=== PATIENT | male | born 1975 | race Caucasian/White ===

== ENCOUNTER 2023-06-25 08:31 | Outpatient (CLI) | payer OTHER, SELFPAY ==
[2023-06-25 08:45] LABS: Hematocrit 40.9 % (40.0-54.0); Mean Corpuscular HGB Conc 31.8 g/dL (32-36); Mean Corpuscular Hemoglobin 30.4 pg (27.0-31.0); Mean Corpuscular Volume 95.6 fL (78.0-102.0); Mean Platelet Volume 11.3 fl (8.7-11.0); Platelet Count Result 235 K/mm3 (150-420); Red Blood Count 4.28 M/mm3 (4.70-6.10); Red Cell Distribution Width 12.5 % (11.6-14.4); White Blood Count 5.5 K/mm3 (4.8-10.8)
[2023-06-25 09:34] LABS: Alanine Aminotransferase 20 U/L (16-63); Albumin Level 3.8 g/dL (3.4-5.0); Alkaline Phosphatase 77 U/L (46-116); Anion Gap 6 mmol/L (4-12); Aspartate Amino Transferase 19 U/L (15-37); Bilirubin,Total 0.7 mg/dL (0.00-1.00); Blood Urea Nitrogen 19 mg/dL (7-18); Calcium 9.2 mg/dL (8.5-10.1); Carbon Dioxide 32 mmol/L (21-32); Chloride 104 mmol/L (98-108); Cholesterol 213 mg/dL (0-200); Estimated Glomerular Filt Rate > 60; Glucose 86 mg/dL (70-99); HDL Direct 77 mg/dL (40-60); LDL Cholesterol Calculated 126 mg/dL (<130); Osmolality Calculated 295 mOsm/kg (285-295); Potassium 4.4 mmol/L (3.5-5.1); Sodium 142 mmol/L (136-145); Thyroid Stimulating Hormone 1.14 uIU/mL (0.36-3.74); Total Protein 7.2 g/dL (6.4-8.2); Triglycerides 50 mg/dL (0-150)
== END 2023-06-25 08:32 | disposition home or self-care (01) ==
LOC: CHSLAB 08:33
PROVIDERS: PCP Family Medicine; Visit Provider Family Medicine
DX: Z00.00 Encounter for general adult medical examination without abnormal findings (principal); E66.3 Overweight; Z79.899 Other long term (current) drug therapy
CPT/HCPCS: 36415; 80053; 80061; 84443; 85027

== ENCOUNTER 2024-06-20 06:59 | Outpatient (CLI) | payer OTHER, SELFPAY ==
--- OUTSIDE RECORDS SUMMARY | 2024-06-20 07:01 | XMS_ITS | Clinical Summary ---
Author Organization [facility] Address [address] [place] [address] Care Team Providers Care Ore Bridge Operator Name Role Phone Unavailable Primary Care Provider Unavailabl e Social History Tobacco Use Types Packs/Day Years Used Date Smoking Tobacco: Never Assessed Comments Unknown Sex and Gender Information Value Date Recorded Sex Assigned at Not on file Legal Sex Female 9:19 PM CDT Gender Identity Not on file Sexual Orientation Not on file Last Filed Vital Signs Vital Sign Reading Time Taken Comments Blood Pressure 131/84 12/03/2014 4:31 PM CDT Pulse 73 12/03/2014 4:31 PM CDT Temperature - - Respiratory Rate - - Oxygen Saturation - - Inhaled Oxygen Concentration - - Weight 79.4 kg (175 lb) 12/03/2014 4:31 PM CDT Height 170.2 cm (5' 7 ) 12/03/2014 4:31 PM CDT Body Mass Index 27.41 12/03/2014 4:31 PM CDT Plan of Treatment Health Maintenance Due Date Last Done Comments Cervical Cancer Screening Pa p Smear (Age 30 to 64) Every 3 Years 1973 Colorectal Cancer Screening Colonoscopy (10 Years) 1973 Annual Physical 1976 Hepatitis C 1991 DTaP, Tdap and Td Vaccines ( 1 - Tdap) 1992 Hepatitis B Vaccines (1 of 3 - 19+ 3-dose series) 1992 Cervical Cancer Screening Pa p with HPV Testing (Age 30 to 64) Every 5 Years 2003 Cervical Cancer Screening with HPV 2003 Mammogram Screening 2013 Zoster Vaccines (1 of 2) 2023 COVID-19 Vaccine (2023-2 5 season) 2023 Influenza Adult (#1) 2023 Meningococcal B Vaccine Aged Out No l onger eligible based on patient's age to complete this topic Meningococcal Vaccine Aged Out No mariah dez eligible based on patient's age to complete this topic Pneumococcal Vaccine: Pediat rics (0 to 5 Years) and At-Risk Patients (6 to 64 Years) Aged Out No longer eligible b ased on patient's age to complete this topic RSV Immunizations Under 20 Months Aged Out No longer eligible based on patient's age to complete this topic
--- OUTSIDE RECORDS SUMMARY | 2024-06-20 07:02 | XMS_ITS | Continuity of Care Document ---
Author Organization [facility] Address [address] [place] [address] Phone Care Team Providers Care Beader Tender Name Role Phone Rica PT, DPT, Mello Unavailable Unavai lable Procedures Procedure Date Progress Note Therapeutic Activities Manual Therapy Hot or Cold Pack Therapeutic Exercise Neuromuscular Re-Ed Electrical Stimulation Therapeutic Activities Neuromuscular Re-Ed Hot or Cold Pack Therapeutic Exercise Electrical Stimulation Manual Therapy Therapeutic Activities Neuromuscular Re-Ed Therapeutic Exercise Manual Therapy Therapeutic Activities Neuromuscular Re-Ed Therapeutic Exercise Electrical Stimulation Hot or Cold Pack Therapeutic Exercise Hot or Cold Pack Neuromuscular Re-Ed Manual Therapy Therapeutic Activities Electrical Stimulation Neuromuscular Re-Ed Therapeutic Exercise Therapeutic Activities Manual Therapy Hot or Cold Pack Manual Therapy Therapeutic Activities Therapeutic Exercise Neuromuscular Re-Ed Manual Therapy Therapeutic Activities Therapeutic Exercise Neuromuscular Re-Ed Therapeutic Activities Therapeutic Exercise Manual Therapy Hot or Cold Pack Electrical Stimulation PT Evaluation Low Complexity Manual Therapy Therapeutic Exercise Therapeutic Activities Hot or Cold Pack Electrical Stimulation Progress Note THERAPEUTIC EXERCISES NEUROMUSCULAR RE-ED FUNC ACTIVITY THERAPEUTIC EXERCISES NEUROMUSCULAR RE-ED FUNC ACTIVITY THERAPEUTIC EXERCISES NEUROMUSCULAR RE-ED MANUAL THERAPY FUNC ACTIVITY THERAPEUTIC EXERCISES NEUROMUSCULAR RE-ED MANUAL THERAPY FUNC ACTIVITY Progress Note THERAPEUTIC EXERCISES NEUROMUSCULAR RE-ED MANUAL THERAPY FUNC ACTIVITY THERAPEUTIC EXERCISES NEUROMUSCULAR RE-ED MANUAL THERAPY FUNC ACTIVITY THERAPEUTIC EXERCISES NEUROMUSCULAR RE-ED MANUAL THERAPY FUNC ACTIVITY THERAPEUTIC EXERCISES NEUROMUSCULAR RE-ED MANUAL THERAPY FUNC ACTIVITY THERAPEUTIC EXERCISES NEUROMUSCULAR RE-ED MANUAL THERAPY FUNC ACTIVITY THERAPEUTIC EXERCISES NEUROMUSCULAR RE-ED MANUAL THERAPY FUNC ACTIVITY THERAPEUTIC EXERCISES NEUROMUSCULAR RE-ED MANUAL THERAPY FUNC ACTIVITY THERAPEUTIC EXERCISES NEUROMUSCULAR RE-ED MANUAL THERAPY FUNC ACTIVITY HOT/COLD PACK THERAPEUTIC EXERCISES NEUROMUSCULAR RE-ED MANUAL THERAPY FUNC ACTIVITY HOT/COLD PACK THERAPEUTIC EXERCISES NEUROMUSCULAR RE-ED MANUAL THERAPY FUNC ACTIVITY HOT/COLD PACK THERAPEUTIC EXERCISES NEUROMUSCULAR RE-ED MANUAL THERAPY FUNC ACTIVITY HOT/COLD PACK ELECTRIC STIMULATION UNATT THERAPEUTIC EXERCISES NEUROMUSCULAR RE-ED MANUAL THERAPY FUNC ACTIVITY HOT/COLD PACK ELECTRIC STIMULATION UNATT THERAPEUTIC EXERCISES NEUROMUSCULAR RE-ED MANUAL THERAPY FUNC ACTIVITY HOT/COLD PACK ELECTRIC STIMULATION UNATT THERAPEUTIC EXERCISES NEUROMUSCULAR RE-ED MANUAL THERAPY FUNC ACTIVITY HOT/COLD PACK ELECTRIC STIMULATION UNATT THERAPEUTIC EXERCISES NEUROMUSCULAR RE-ED MANUAL THERAPY FUNC ACTIVITY HOT/COLD PACK THERAPEUTIC EXERCISES NEUROMUSCULAR RE-ED MANUAL THERAPY FUNC ACTIVITY HOT/COLD PACK THERAPEUTIC EXERCISES NEUROMUSCULAR RE-ED MANUAL THERAPY FUNC ACTIVITY HOT/COLD PACK PT RE-EVALUATION THERAPEUTIC EXERCISES MANUAL THERAPY HOT/COLD PACK ELECTRIC STIMULATION UNATT THERAPEUTIC EXERCISES MANUAL THERAPY HOT/COLD PACK ELECTRIC STIMULATION UNA THERAPEUTIC EXERCISES MANUAL THERAPY HOT/COLD PACK ELECTRIC STIMULATION UNA THERAPEUTIC EXERCISES MANUAL THERAPY HOT/COLD PACK ELECTRIC STIMULATION UNA THERAPEUTIC EXERCISES MANUAL THERAPY HOT/COLD PACK ELECTRIC STIMULATION UNA THERAPEUTIC EXERCISES MANUAL THERAPY HOT/COLD PACK ELECTRIC STIMULATION UNA THERAPEUTIC EXERCISES MANUAL THERAPY HOT/COLD PACK ELECTRIC STIMULATION UNA THERAPEUTIC EXERCISES MANUAL THERAPY HOT/COLD PACK ELECTRIC STIMULATION UNA THERAPEUTIC EXERCISES MANUAL THERAPY HOT/COLD PACK ELECTRIC STIMULATION UNA PT RE-EVALUATION THERAPEUTIC EXERCISES MANUAL THERAPY HOT/COLD PACK ELECTRIC STIMULATION UNA THERAPEUTIC EXERCISES MANUAL THERAPY HOT/COLD PACK ELECTRIC STIMULATION UNA THERAPEUTIC EXERCISES MANUAL THERAPY HOT/COLD PACK ELECTRIC STIMULATION UNA THERAPEUTIC EXERCISES MANUAL THERAPY HOT/COLD PACK ELECTRIC STIMULATION UNA THERAPEUTIC EXERCISES MANUAL THERAPY HOT/COLD PACK ELECTRIC STIMULATION UNA THERAPEUTIC EXERCISES MANUAL THERAPY HOT/COLD PACK ELECTRIC STIMULATION UNA THERAPEUTIC EXERCISES MANUAL THERAPY HOT/COLD PACK ELECTRIC STIMULATION UNA Shoulder Amando PT EVALUATION THERAPEUTIC EXERCISES MANUAL THERAPY HOT/COLD PACK ELECTRIC STIMULATION UNATT Advance Directives Directive Yes / No Effective Date File Name No Information Encounters Encounter Description Practice Location Reason(s) For Visit Diagnoses Date Provider Providers Copied on Encounter [facility] [address] [facility], [place], [place], [id number], tel:[phone] [place] No Information 1 Rica Sarkar. . Referring Provider: [facility]. [facility] [address] [address], [place], [place], [id number], tel:[phone] [place] No Information 1 Rica Parsonsry. . Referring Provider: [facility] [address], [place], [place], [id number], tel:[phone] [place] No Information 1 Rica Parsonsry. . Referring Provider: [facility] [address], [place], [place], [address], tel:[phone] [place] No Information 1 Betsey Ramosi. . Referring Provider: [facility] [address], [place], [place], [address], tel:[phone] [place] No Information 1 Scheldt Angelia. . Referring Provider: [facility] [address], [place], [place], [address], tel:[phone] [place] No Information 1 Scheldt Angelia. . Referring Provider: [facility] [facility] [address], [place], [place], [address], tel:[phone] [place] No Information 1 Schniers Mello. . Referring Provider: [facility], [address], [place], [place], [address], [place] tel:[phone] [place] No Information 1 Schniers Mello. . Referring Provider: [facility], [address] [facility], [place], [place], [address], tel:[phone] [place] No Information 1 Schniers Mello. . Referring Provider: [facility], [address], [place], [place], [address], [place] tel:[phone] [place] No Information 1 Schniers Mello. . Referring Provider: [facility], [address] [address], [place], [place], [address], [place] tel:[phone] [place] No Information 6 Shaun Soco. [address] [place] [address], [address], [place], [facility], . tel: [phone] Referring Provider: [place], [address]. tel:[phone] [facility] [address] [address], [place], [place], [address], tel:[phone] [place] No Information 6 Shaun Soco. [address] [place] [address], [address], [place], [facility], . tel: [phone] Referring Provider: [place], [address]. tel:[phone] [facility], [place], [place], [address], [place] tel:[phone] [place] No Information 6 Shaun Soco. [address] [place] [address], [address], [place], [place], [facility], . tel: [phone] Referring Provider: [place], [address]. tel:[phone], [id number], tel:[phone] [place] No Information 3-201 6 Shaun Soco. [address] [place] [address], [address], [place], [place], [facility], . tel: [phone] Referring Provider: [place], [address]. tel:[phone], [id number], tel:[phone] [place] No Information 1 6 Shaun Soco. [address] [place] [address], [address], [place], [facility], . tel: [phone] Referring Provider: [place], [address]. tel:[phone], [id number], tel:[phone] [place] No Information 6-201 6 Shaun Soco. [address] [place] [address], [address], [place], [facility], . tel: [phone] Referring Provider: [place], [address]. tel:[phone], [id number], tel:[phone] [place] No Information 4-201 6 Shaun Soco. [address] [place] [address], [address], [place], [facility], . tel: [phone] Referring Provider: [place], [address]. tel: [facility] [address] [place], [place] [address], [place], [place], [address], tel:[phone] [place] No Information Dec-2 8-201 5 Shaun Soco. [address] [place] [address], [address], [place], [facility], . tel: [phone] Referring Provider: [place], [address]. tel: [address], [place], [place], [address], [place] tel:[phone] [place] No Information Dec-2 3-201 5 Shaun Soco. [address] [place] [address], [address], [place], [facility], . tel: [phone] Referring Provider: [place], [address]. tel: [address], [place], [place], [address], [place] tel:[phone] [place] No Information Dec-2 1-201 5 Shaun Soco. [address] [place] [address], [address], [place], [facility], . tel: [phone] Referring Provider: [place], [address]. tel: [address], [place], [address], [place] tel:[phone] [place] No Information Dec-1 6-201 5 Shaun Soco. [address] [place] [address], [address], [place], [facility], . tel: [phone] Referring Provider: [place], [address]. tel: [facility], [address] [place], [place] [address], [place], [address], tel:[phone] [place] No Information Dec-1 1-201 5 Shaun Soco. [address] [place] [address], [address], [facility], . tel: [phone] Referring Provider: [place], [address]. tel: [facility] [address] [facility] [address], [address], tel:[phone] [place] No Information Dec-0 9-201 5 Shaun Soco. [address] [place] [address], [address], [facility], . tel: [phone] Referring Provider: [place], [address]. tel: [facility] [address] [facility] [address] [place] [address], [id number], tel:[phone] [place] No Information Nov-3 0-201 5 Shaun Soco. [address] [place] [address], [address], [facility], . tel: [phone] Referring Provider: [place], [address]. tel: [facility] [address] [facility] [address], [address], tel:[phone] [place] No Information Nov-2 5-201 5 Shaun Soco. [address] [place] [address], [address], [place], [facility], . tel: [phone] Referring Provider: [place], [address]. tel: [facility] [address] [facility] [address], [address], tel:[phone] [place] No Information Nov-2 3-201 5 Shaun Soco. [address] [place] [address], [address], [place], [address], [place]. tel: [phone] Referring Provider: [place], [address]. tel:[phone], [place], [place], [id number], [place] tel:[phone] [place] No Information Nov- 8-201 5 Milleruet Gerard. [address] [place] [address], [address], [place], [address], [place]. tel: [phone] Referring Provider: [place], [address]. tel:[phone], [place], [address], [place] tel:[phone] [place] No Information Nov-1 6-201 5 Shaun Soco. [address] [place] [address], [address], [place], [address], [place]. tel: [phone] Referring Provider: [place], [address]. tel:[phone], [place], [place], [address], [place] tel:[phone] [place] No Information Jan-1 1-201 5 Shaun Soco. [address] [place] [address], [address], [place], [address], [place]. tel: [phone] Referring Provider: [place], [address]. tel:[phone] [facility], [address], [place], [place], [address], [place] tel:[phone] [place] No Information Nov-0 9-201 5 Shaun Soco. [address] [place] [address], [address], [place], [facility], . tel: [phone] Referring Provider: [place], [address]. tel: [address], [id number], tel:[phone] [place] No Information Nov-0 5-201 5 Kayla Parks. [address] [place] [address], [address], [place], [facility], . tel: [phone] Referring Provider: [place], [address]. tel:[phone], [id number], tel:[phone] [place] No Information Nov-0 2-201 5 Shaun Wan. [address] [place] [address], [address], [place], [facility], . tel: [phone] Referring Provider: [place], [address]. tel:[phone], [id number], tel:[phone] [place] No Information Oct-2 8-201 5 Shaun Wan. [address] [place] [address], [address], [place], [facility], . tel: [phone] Referring Provider: [place], [address]. tel: [address], [id number], tel:[phone] [place] No Information Oct-2 6-201 5 Kayla Parks. [address] [place] [address], [address], [place], [facility], . tel: [phone] Referring Provider: [place], [address]. tel: [facility] [address] [facility], [place], [place], [address], [place] tel:[phone] [place] No Information 3 5 Harsh Bennett. [address] [place] [address], [address], [place], [facility], . tel: [phone] Referring Provider: [place], [address]. tel: [facility] [address] [facility], [place], [place], [address], [place] tel:[phone] [place] No Information 5 Shaun Wan. [address] [place] [address], [facility] [address], [place], [facility], . tel: [phone] Referring Provider: [place], [address]. tel: [facility] [address] [place], [place] [address] [facility], [place], [address], [place] tel:[phone] [place] No Information 5 Kayla Parks. [address] [place] [address], [address], [place], [facility], . tel: [phone] Referring Provider: [place], [address]. tel: [facility] [address] [facility], [place], [place], [address], [place] tel:[phone] [place] No Information 5- 5 Kayla Parks. [address] [place] [address], [address], [place], [facility], . tel: [phone] Referring Provider: [place], [address]. tel: [facility], [address] [facility], [place], [place], [address], tel:[phone] [place] No Information 5 Shaun Wan. [address] [place] [address], [address], [place], [facility], . tel: [phone] Referring Provider: [place], [address]. tel:[phone] [facility], [address] [facility], [place], [place], [address], [place] tel:[phone] [place] Stiffness of right shoulder, not elsewhere classifiedMuscle wasting and atrophy, NEC, right shoulderPain in right shoulderAdhesive capsulitis of right shoulderUnsp rotatr-cuff tear/ruptr of right shoulder, not trauma 5 Shaun Wan. [address] [place] [address], [address], [place], [facility], . tel: [phone] Referring Provider: [place], [address]. tel:[phone] [facility] [address] [facility], [place], [place], [address], tel:[phone] [place] No Information Sep-0 9201 5 Shaun Wan. [address] [place] [address], [address], [place], [facility], . tel: [phone] Referring Provider: [place], [address]. tel:[phone] [facility] [facility] [address], [place], [address], tel:[phone] [place] No Information Sep-0 8-201 5 Kayla Parks. [address] [place] [address], [address], [place], [facility], . tel: [phone] Referring Provider: [place], [address]. tel: [address], [place], [place], [address], [place] tel:[phone] [place] No Information Sep-0 3-201 5 Shaun Soco. [address] [place] [address], [address], [facility], . tel: [phone] Referring Provider: [place], [address]. tel: [address], [place], [place], [address], [place] tel:[phone] [place] No Information Sep-0 2-201 5 Shaun Soco. [address] [place] [address], [address], [facility], . tel: [phone] Referring Provider: [place], [address]. tel: [address], [place], [address], [place] tel:[phone] [place] No Information Aug-3 1 5 Shaun Soco. [address] [place] [address], [address], [place], [facility], . tel: [phone] Referring Provider: [place], [address]. tel: [address], [place], [place], [address], [place] tel:[phone] [place] No Information Aug-2 8- 5 Shaun Soco. [address] [place] [address], [address], [place], [facility], . tel: [phone] Referring Provider: [place], [address]. tel: [address], [place], [place], [address], tel:[phone] [place] No Information Shaun Wan. [address] [facility], [address], [address], . tel:[phone] Referring Provider: Genaro Tilley, [address] [place] [address], [address]. tel:[phone] [facility], [id number], tel:[phone] [place] Pain in joint involving shoulder region Shaun Wan. [address] [facility], [facility] [address], [place], [address], . tel:[phone] Referring Provider: Genaro Tilley, [address] [place] [address], [address]. tel:[phone] Family History Family Member Type Diagnosis Age At Onset No Information Payers Payer name Insurance type Covered democrat ID Samanthayohannes ethanyandel(s) [facility] CI [id number] Social History Type Description Quantity Date Captured Comments Sex Female Smoking Status No Information Chief Complaint And Reason For Visit No Information Reason For Referral Reason For Referral No Information History Of Present Illness Encounter Date Complaint History Of Prese nt Illness No Information Functional Status Date Functional Assessmen t No Information Instructions Date Instruction Additional Infor mation Dietary needs education Related to Overweight Prescribed activity/exercise edu cation Related to Overweight Assessments Type Assessment Date No Information Patient Care Teams Name Effective Dates (start - stop) Status Members No Information
--- OUTSIDE RECORDS SUMMARY | 2024-06-20 07:02 | XMS_ITS | Clinical Summary ---
Author Organization [facility] Address [address] [facility] [place] [address] Care Team Providers Care Photo Tube Assembler Name Role Phone Unavailable Primary Care Provider Unavailabl e Source Comments [facility],non-owned Affiliates and Associated Physician Practices is amultiple site organization consisting of ambulatory clinics and hospital sitesin [place], [place], [place] and [place]. This disclosure is being madepursuant to the Care Everywhere program and may not contain all information available regarding this patient. Last updated 17.[facility] [employer] Social History Tobacco Use Types Packs/Day Years Used Date Smoking Tobacco: Never Assessed Sex and Gender Information Value Date Recorded Sex Assigned at Not on file Gender Identity Not on file Sexual Orientation Not on file Plan of Treatment Health Maintenance Due Date Last Done Comments COLOGUARD (AGES 45-75) - COL ON CA SCREENING 1973 COLON MONITORING 1973 COLONOSCOPY - COLON CA SCREENING 1973 CT COLONOGRAPHY - COLON CA SCREENING 1973 Colorectal Cancer Screening 1973 FIT - COLON CA SCREENING 1973 FLEX SIG - COLON CA SCREENING 1973 LIPID TESTING 1973 MAMMOGRAM 1973 PAP SMEAR 1973 HIV SCREENING 1988 HEPATITIS C SCREENING 04/13/1991 DTAP/TDAP/TD VACCINES (1 - Tdap) 1992 HEPATITIS B VACCINE (1 of 3 - 19+ 3-dose series) 1992 PNEUMOCOCCAL VACCINE 50+ (1 of 1 - PCV) 2023 ZOSTER VACCINE (1 of 2) 2023 COVID-19 VACCINE (1 - 2023-2 5 season) 2023 INFLUENZA VACCINE (#1) 2023 DEPRESSION SCREENING 03/26/2024 HIB VACCINE Aged Out No longer eligi ble based on patient's age to complete this topic HPV VACCINE Aged Out No longer eligi ble based on patient's age to complete this topic MENINGOCOCCAL (Group B) VACC INE SHARED DECISION-MAKING Aged Out No longer eligibl e based on patient's age to complete this topic MENINGOCOCCAL GROUPS A/C/Y/W VACCINE Aged Out No longer eligible b ased on patient's age to complete this topic PNEUMOCOCCAL VACCINE Aged Out No long er eligible based on patient's age to complete this topic
--- OUTSIDE RECORDS SUMMARY | 2024-06-20 07:02 | XMS_ITS | Encounter Summary ---
Author Organization [facility] Address [address] [place] [address] Care Team Providers Care Pressure Tester Operator Name Role Phone Unavailable Primary Care Provider Unavailabl e Encounter Details Date Type Department Care Team (Late st Contact Info) Description 10/27/2021 Lab Requisition [facility] DermPath Lab [address] [place] [address] Andrew Porras MD [address] [facility] [place] [address] Social History Tobacco Use Types Packs/Day Years Used Date Smoking Tobacco: Never Assessed Sex and Gender Information Value Date Recorded Sex Assigned at Not on file Gender Identity Not on file Sexual Orientation Not on file documented as of this encounter Plan of Treatment Not on file documented as of this encounter Procedures Procedure Name Priority Date/Time Associated Diagnosis Comments DERMATOPATHOLOGY Routine 10/27/2021 12:0 0 AM CDT documented in this encounter Results * DERMATOPATHOLOGY (10/27/2021 12:00 AM CDT) Case Report Dermatopathology Report Case: [id number] Authorizing Provider: Andrew Porras MD Collected: 10/27/2021 12:00 AM Ordering Location: [facility] DermPath Lab Received: 10/27/2021 05:17 PM Pathologist: Kati Harp MD Specimen: Skin, right nasal sidewall 1:38 PM CDT DERMATOPATHOLOGY LABORATORY Amended Report Clerical error, change in gender from male to female. 2 1:38 PM CDT DERMATOPATHOLOGY LABORATORY Final Diagnosis Specimen A. SKIN, right nasal sidewall: SQUAMOUS CELL CARCINOMA, MODERATELY DIFFERENTIATED (C44.321) 2 1:38 PM CDT DERMATOPATHOLOGY LABORATORY Amendment electronically signed by Kati Harp MD on 11/09/2021 at 1:38 PM Clinical History AK vs. BCCA vs. Other. Path# [id number] 2 1:38 PM CDT DERMATOPATHOLOGY LABORATORY Gross Description Specimen A: Received is one formalin filled container labeled with the patient's name and designated right nasal sidewall. The specimen consists of a shave biopsy measuring 0x8x7jk. Jar 0. 2 1:38 PM CDT DERMATOPATHOLOGY LABORATORY Microscopic Description Specimen A. SKIN, right nasal sidewall: There are nests of squamous epithelial cells which arise from the epidermis and extend into the dermis. The nests have only focal central keratinization and rare horn ean formation. 2 1:38 PM CDT DERMATOPATHOLOGY LABORATORY Disclaimer An external and internal positive and negative controls are appropriate for the histochemical, immunohistochemical and immunofluorescence stain(s) in this case (if any), except where stated explicitly. The performance characteristics of the stain(s) cited in this report were developed and its performance characteristic determined by the Dermatopathology Laboratory at [facility], directed by Dr. Gi Valentine. These tests need not be, and therefore are not, approved by the [place] Food and Drug Administration. The tests are used for clinical purposes. Billing Codes Specimen Charges Stain Charges 52056 1 2 1:38 PM CDT DERMATOPATHOLOGY LABORATORY Embedded Images 2 1:38 PM CDT DERMATOPATHOLOGY LABORATORY Pathology/Cytolog y TISSUE SPECIMEN FROM SKIN / Unknown 10/27/2021 10/27/2021 5:17 PM CDT Andrew Porras MD LAB - PATHOLOGY/CYTO LOGY ORDERABLES DERMATOPATHOLOGY LABORATORY [facility] - Department of Dermatology [address], [address] Floor [address] [phone] documented in this encounter Visit Diagnoses Not on filedocumented in this encounter
--- OUTSIDE RECORDS SUMMARY | 2024-06-20 07:02 | XMS_ITS | Clinical Summary ---
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 Gender Identity Not on file Sexual Orientation Not on file Plan of Treatment Health Maintenance Due Date Last Done Comments Hepatitis C Virus (HCV) Screening 1973 Hepatitis B Immunization (1 of 3 - 19+ 3-dose series) 1992 Colonoscopy 2018 Colorectal Cancer Screening 2018 Cologuard 2023 Immunochemical Fecal Occult Blood 2023 Pneumococcal Immunization (5 0+ years) (1 of 1 - PCV) 2023 Zoster Immunization (1 of 2) 2023 Influenza Immunization (#1) 2023 SARS-COV-2 Immunization ( season) 2023 04/04/2021, 06/17/2020, 04/27/2020 Respiratory Syncytial Virus (RSV) Immunization (Adult) (1 - 1-dose 75+ series) 2048 DTaP/Tdap/Td Immunization Discontinued 07/18/2013 TdaP Immunization Completed 07/18/2013 Meningococcal Immunization (ACWY) Aged Out No longer eligible based on patient's age to complete this topic Rotavirus Immunization Aged Out No lo nger eligible based on patient's age to complete this topic
--- OUTSIDE RECORDS SUMMARY | 2024-06-20 07:02 | XMS_ITS | Clinical Summary ---
Author Organization [facility] Address [address] [place] [address] Care Team Providers Care Shore Man Name Role Phone Tyra Agudelo DO Primary Care Provider +1- [phone] Allergies No known active allergies Medications methylphenidate ER (CONCERTA) 18 mg CR tabletIndications: Attention-Deficit Hyperactivity Disorder Take 1 tablet (18 mg total) by mouth every morning 30 tablet 3 Active Active Problems Problem Noted Date Diagnosed Date Concentration deficit 01/11/2023 Assessment & Plan (01/11/2023 8:57 AM CDT): Trial of Concerta 18 mg daily. Side effects of stimulants discussed. She can give an update in [employer] in 3-4 weeks. Discussed if not working, may need to consider psychologist for formal testing. Memory changes 06/08/2022 Assessment & Plan (06/08/2022 5:03 PM CDT): I am going to order a CT of the head. Going to refer her to Neurology for formal memory testing. Her B12 level is normal. Annual physical exam 06/08/2020 Assessment & Plan (06/08/2022 5:01 PM CDT): Labs reviewed. No abnormality. Assessment & Plan (06/08/2021 4:09 PM CDT): She feels that she is in a brain fog at times. Last year's blood work was unremarkable. I will recheck a CBC and Chem 7 lipid TSH free T4 liver function tests sed rate flu denies any hormone follicular stimulating hormone I will also do a B12 level Assessment & Plan (06/08/2020 5:17 PM CDT): Routine lab Colonoscopy Family history polyps Add vyvanse Immunizations Immunization Administration Dates Next Due Influenza, Unspecified 01/11/2023(Deferr ed: Patient Refused),12/24/2021(Deferred: Patient Refused),06/08/2021(Deferred: Patient decision),01/12/2021(Deferred: Patient Refused),01/13/2020(Deferred: Patient Refused) Tdap 07/18/2013 Surgical History Surgery Date Site/Laterality Comments FOOT SURGERY APPENDECTOMY Medical History Medical History Date Comments Bunion Seizures (HCC) Skin cancer Family History Medical History Relation Name Comments Bunion Daughter pacemaker Mother Relation Name Status Comments Daughter Father Alive Mother Alive Social History Tobacco Use Types Packs/Day Years Used Date Smoking Tobacco: Never Smokeless Tobacco: Never Tobacco Cessation:Counseling Given: Not Answered Alcohol Use Standard Drinks/Week Comments Yes 0 (1 standard drink = 0.6 oz pur e alcohol) social AUDIT-C Answer Date Recorded Q1: How often do you have a drink containing alcohol? 4 or more times a week 06/08/2021 Q2: How many drinks containi ng alcohol do you have on a typical day when you are drinking? 1 or 2 Q3: How often do you have si x or more drinks on one occasion? 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 Gender Identity Female 11/25/2020 1:15 PM CDT Sexual Orientation Straight 11/25/2020 1: 15 PM CDT Obstetrics History Para Term AB IAB SAB Ectopic Multiple Livin g Live Births 2 2 2 Date Outcome GA Total Labor Labor/2nd/3rd Weight Sex Type Anes PTL Shanthi A1 A5 Name Clin Term Term Last Filed Vital Signs Vital Sign Reading Time Taken Comments Blood Pressure 100/74 09/18/2022 1:07 PM CDT Pulse 74 09/18/2022 1:07 PM CDT Temperature 36.5 C (97.7 F) 06/08/2022 4:17 PM CDT Respiratory Rate 18 06/08/2022 4:17 PM CDT Oxygen Saturation 97% 06/08/2022 4:17 PM CDT Inhaled Oxygen Concentration - - Weight 72.6 kg (160 lb) 01/11/2023 8:41 AM CDT Height 170.2 cm (5' 7 ) 01/11/2023 8:41 AM CDT Body Mass Index 25.06 01/11/2023 8:41 AM CDT Plan of Treatment Health Maintenance Due Date Last Done Comments Cervical Cancer Screening 1973 Hepatitis B Screening 1991 Zoster Vaccine (1 of 2) 2023 Depression Screening 06/09/2023 06/08/2022, 06/08/2021, 06/08/2020 Regular Well Visit/Exam 18-64 06/09/2023 06/08/2022, 06/08/2021, 06/08/2020, Additional history exists DTaP/Tdap/Td Vaccine (2 - Td or Tdap) 07/19/2023 07/18/2013 Covid-19 Vaccine (4 - season) 2023 04/04/2021, 06/17/2020, 04/27/2020 Influenza Vaccine (#1) 2023 Breast Cancer Screening-Mammogram 08/22/2024 08/23/2023, 08/15/2022, 07/12/2021 Colon Cancer Screening-Colonoscopy 09/23/2030 09/23/2020 Hepatitis C Screening Completed 06/22/2020 Pneumococcal vaccine <65 Aged Out No longer eligible based on patient's age to complete this topic Procedures Procedure Name Priority Date/Time Associated Diagnosis Comments DIAGNOSTIC MAMMOGRAM BILATERAL W ANTON Schedule Routine, Read Routine (OP Routine) 08/23/2023 3:14 PM CDT Category 3 mammography result with short follow-up interval suggested for probably benign finding COLONOSCOPY Routine 09/23/2020 HEPATITIS C ANTIBODY Routine 06/22/2020 7:19 AM CDT Annual physical exam from Last 3 Months or Most Recently Relevant to Health Maintenance Results * Diagnostic Mammogram Bilateral W Anton (08/23/2023 3:14 PM CDT) Anatomical Region Laterality Modality Breast Bilateral Mammography 08/23/2023 3:29 PM CDT Narrative 08/23/2023 3:32 PM CDT EXAM DESCRIPTION: US BREAST RIGHT LIMITED; DIAGNOSTIC MAMMOGRAM BILATERAL W ANTON REASON FOR STUDY: 48-year-old woman comes in today for follow-up of a probably benign finding in the right breast, and routine annual screening of the left breast. COMPARISON: Diagnostic mammogram and sonogram dated 08/15/2022, 02/15/2022, 08/12/2021. Screening mammogram dated 07/12/2021. FINDINGS: CC and MLO digital breast tomosynthesis of both breasts with C view was performed. Targeted sonographic examination of the right breast was also performed with real-time grayscale images and color Doppler. FINDINGS: MAMMOGRAPHIC FINDINGS: DENSITY: There are scattered areas of fibroglandular density. BREASTS: A small oval low-density mass is unchanged in the upper outer right breast at middle depth. There is no associated architectural distortion or suspicious microcalcifications. There is no new suspicious finding in either breast on mammogram. ULTRASOUND FINDINGS: Targeted sonographic examination of the right breast at the 10:30 o'clock position 2-3 cm from the nipple demonstrates an unchanged oval mass with circumscribed margins. This mass is wider than taller, measures 4 x 2 x 5 mm, and is nearly anechoic. There is mild posterior acoustic enhancement, and no internal blood flow seen on color Doppler. The finding demonstrates no suspicious change in size or appearance over the past 2 years, and is now considered benign. IMPRESSION: 1. The 5 mm oval mass at the 10:30 o'clock position of the right breast 2-3 cm from the nipple has not suspiciously changed since July 2021. Stability over the past 2 years is consistent with benignity, and no additional specific workup or follow-up is recommended. 2. There are no new suspicious findings in either breast on mammogram. Continued monthly breast self-examination is recommended, and annual bilateral screening mammography in 12 months. BIRADS: 2 - Benign The patient was notified of the results and recommendations at the time of the examination. THIS IS AN ELECTRONICALLY VERIFIED FINAL REPORT 08/23/2023 3:32 PM - Electronically signed by Montrell Thomas M.D. RL: SALMA Report ID: [id number] Reading Location: MAMME Delbert Orellana DO IMG MAMMO PROCEDURES Fin al Result * Colonoscopy (09/23/2020) Anatomical Region Laterality Modality Other 09/23/2020 Simran Laura MD ENDOSCOPY PROCEDURES Anabela l Result * Hepatitis C antibody (06/22/2020 7:19 AM CDT) Hep C Ab NON-REACTI VE NON-REACT AIDE [facility] SIGNAL TO CUT-OFF 0.01 <1.00 [facility] Comment: HCV antibody was non-reactive. There is no laboratory evidence of HCV infection. In most cases, no further action is required. However, if recent HCV exposure is suspected, a test for HCV RNA (test code 84058) is suggested. For additional information please refer to http://education.[employer]/faq/AJC72s5 (This link is being provided for informational/ educational purposes only.) Blood specimen (specimen) 06/22/2020 7:19 AM CDT 06/22/2020 7:20 AM CDT Narrative [facility] - 06/23/2020 1:57 PM CDT FASTING:YES FASTING: YES Delbert Orellana DO LAB MICROBIOLOGY - GENER AL ORDERABLES Final Result [facility] [address], [place] [address] from Last 3 Months or Most Recently Relevant to Health Maintenance Insurance CHOICE PLUS CHOICE PLUS CHOICE PLUS Member Subscriber Plan / Payer (Ef fective 2017-Present) Name:Pedrito Moore Relation to Subscriber:Self Name:PEDRITO MOORE Payer ID:[id number] (NAIC) Type:[facility] HMO/PPO Address: [place] [id number] Care Teams Shore Man Relationship Specialty Start Date End Date Tyra Agudelo DO [address] [place] [address] [place] [id number] PCP - General Family Medicine 08/23/23
--- OUTSIDE RECORDS SUMMARY | 2024-06-20 07:02 | XMS_ITS | Referral Summary ---
Author Organization [facility] Address [address] [place] [address] Care Team Providers Care Retail Selling Specialist Name Role Phone Tyra Agudelo DO Primary Care Provider +1- [phone] Allergies No known active allergies Medications methylphenidate [...] discussed. She can give an update in [employer] in 3-4 weeks. 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 RL: SALMA Report ID: [id number] Reading Location: MAMME Delbert Orellana DO IMG [...] a test for HCV RNA (test code 21591) is suggested. For additional information please refer to http://education.[employer].Zapper/faq/EDB45t5 (This link is being provided for informational/ educational purposes only.) Blood specimen (specimen) 06/22/2020 7:19 AM CDT 06/22/2020 7:20 AM CDT Narrative [facility] - 06/23/2020 1:57 PM CDT FASTING:YES FASTING: YES Delbert Orellana DO LAB MICROBIOLOGY - GENER AL ORDERABLES Final Result [facility] [address] [place] [address] from Last 3 Months or Most Recently Relevant to Health Maintenance [place] [address] [address] CHOICE PLUS [id number] CHOICE PLUS [facility] CHOICE PLUS Care Teams Retail Selling Specialist Relationship Specialty Start Date End Date Tyra Agudelo DO [facility] [address] [address] PCP - General Family Medicine 08/23/23
[2024-06-20 07:24] LABS: Hematocrit 39.3 % (40.0-54.0); Hemoglobin 12.8 g/dL (14.0-18.0); Mean Corpuscular HGB Conc 32.6 g/dL (32-36); Mean Corpuscular Volume 95.2 fL (78.0-102.0); Mean Platelet Volume 11.6 fl (8.7-11.0); Platelet Count Result 247 K/mm3 (150-420); Red Blood Count 4.13 M/mm3 (4.70-6.10); Red Cell Distribution Width 11.6 % (11.6-14.4); White Blood Count 5.8 K/mm3 (4.8-10.8)
[2024-06-20 08:13] LABS: Alanine Aminotransferase 27 U/L (16-63); Albumin Level 4.1 g/dL (3.4-5.0); Alkaline Phosphatase 74 U/L (46-116); Anion Gap 1 mmol/L (4-12); Aspartate Amino Transferase 19 U/L (15-37); Bilirubin,Total 0.5 mg/dL (0.00-1.00); Blood Urea Nitrogen 16 mg/dL (7-18); Calcium 9.6 mg/dL (8.5-10.1); Carbon Dioxide 34 mmol/L (21-32); Chloride 102 mmol/L (98-108); Cholesterol 184 mg/dL (0-200); Estimated Glomerular Filt Rate > 60; Glucose 92 mg/dL (70-99); HDL Direct 60 mg/dL (40-60); LDL Cholesterol Calculated 116 mg/dL (<130); Osmolality Calculated 285 mOsm/kg (285-295); Potassium 4.4 mmol/L (3.5-5.1); Sodium 137 mmol/L (136-145); Thyroid Stimulating Hormone 0.75 uIU/mL (0.36-3.74); Total Protein 7.5 g/dL (6.4-8.2); Triglycerides 38 mg/dL (0-150)
== END 2024-06-20 07:00 | disposition home or self-care (01) ==
LOC: CHSLAB 07:00
PROVIDERS: PCP Family Medicine; Visit Provider Family Medicine
DX: Z00.00 Encounter for general adult medical examination without abnormal findings (principal); E66.3 Overweight; Z79.899 Other long term (current) drug therapy
CPT/HCPCS: 36415; 80053; 80061; 84443; 85027

== ENCOUNTER 2024-08-29 07:34 | Outpatient (CLI) | payer OTHER, SELFPAY ==
--- OUTSIDE RECORDS SUMMARY | 2024-08-29 07:37 | XMS_ITS | Clinical Summary ---
Author Organization [facility] Address [address] [place] [address] Care Team Providers Care Finance Teacher Name Role Phone Tyra Agudelo DO Primary Care Provider +1- [phone] Allergies No known active allergies Medications methylphenidate [...] discussed. She can give an update in [employer] in 3-4 weeks. 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 RL: SALMA Report ID: [id number] Reading Location: [facility] Delbert Orellana DO IMG [...] a test for HCV RNA (test code 11739) is suggested. For additional information please refer to http://education.[employer] ([employer] united)/faq/UKG15y2 (This link is being provided for informational/ educational purposes only.) Blood specimen (specimen) 06/22/2020 7:19 AM CDT 06/22/2020 7:20 AM CDT Narrative [facility] - 06/23/2020 1:57 PM CDT FASTING:YES FASTING: YES Delbert Orellana DO LAB MICROBIOLOGY - GENER AL ORDERABLES Final Result [facility] [address], [place] [address] from Last 3 Months or Most Recently Relevant to Health Maintenance Insurance CHOICE PLUS CHOICE PLUS CHOICE PLUS Member Subscriber Plan / Payer (Ef fective 2017-Present) Name:Pedrito Moore Relation to Subscriber:Self Name:PEDRITO MOORE Payer ID:[id number] (NAIC) Type:[facility] HMO/PPO Address: [place] [phone] Care Teams Finance Teacher Relationship Specialty Start Date End Date Tyra Agudelo DO [address] [place] [address] [place] [id number] PCP - General Family Medicine 08/23/23
--- OUTSIDE RECORDS SUMMARY | 2024-08-29 07:37 | XMS_ITS | Referral Summary ---
Author Organization [facility] Address [address] [place] [address] Care Team Providers Care Glycerin Supervisor Name Role Phone Tyra Agudelo DO Primary Care Provider +1- [phone] Allergies No known active allergies Medications methylphenidate [...] discussed. She can give an update in [employer] in 3-4 weeks. 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 RL: SALMA Report ID: [id number] Reading Location: [facility] Delbert Orellana DO IMG [...] a test for HCV RNA (test code 80210) is suggested. For additional information please refer to http://education.adsquare.Big Frame/faq/PPE56b3 (This link is being provided for informational/ educational purposes only.) Blood specimen (specimen) 06/22/2020 7:19 AM CDT 06/22/2020 7:20 AM CDT Narrative [facility] - 06/23/2020 1:57 PM CDT FASTING:YES FASTING: YES Delbert Orellana DO LAB MICROBIOLOGY - GENER AL ORDERABLES Final Result [facility] [address] [place] [address] from Last 3 Months or Most Recently Relevant to Health Maintenance [place] [address] [place] [address] CHOICE PLUS [id number] CHOICE PLUS [facility] CHOICE PLUS Care Teams Glycerin Supervisor Relationship Specialty Start Date End Date Tyra Agudelo DO [facility] [address] [address] PCP - General Family Medicine 08/23/23
--- OUTSIDE RECORDS SUMMARY | 2024-08-29 07:38 | XMS_ITS | Data Portability ---
Author Organization 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 Patient will come back in a year unless there are new symptoms. Not available 04/13/2022 16:47:37 04/18/2023 04/18/2023 Annual gynecological exam performed. Patient will come back in a year unless there are new symptoms. [email or web address] Not available 04/18/2023 16:38:22 04/22/2024 04/22/2024 Annual gynecological exam performed. Patient will come back in a year unless there are new symptoms. Not available 04/22/2024 17:03:29 Plan of Treatment Reminders Order Date Submit Date Provider Last Modified By Organization Details Last Modified Time Details Appointments None recorded. Lab hormone panel, serum or plasma 2023 024 [facility] (Lab), [address], [place], [address], 02:33:33 Referral None recorded. Procedures None recorded. Surgeries None recorded. Imaging US, pelvis 2023 024 [email or web address], [address], [address], [place], [address], 18:12:37 US, transvagina l 2023 024 [email or web address], [address], [address], [place], [address], 4 18:12:37 MAMMO, screening, bilateral 2022 023 [facility], [address], [place], [address], 3 05:01:14 Medication Orders None recorded. Patient TargetsNo targets recorded. Patient InstructionsNo instructions recorded. Reason for Referral None Reported. 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 FINAL DIAGN OSIS: Negat ary for Intra epith elial Leeanne n or Wilver lan (NIL) . Elect matt frias jackie d by Yojana Espinoza, CT on 2022 at 2:24 PM ----- ----- ----- ----- ----- ----- ----- ----- ----- ----- ----- ----- ----- ----- ----- ----- ----- ---- HPV RESUL TS: HPV mRNA E6/E7 : No HPV mRNA Detec laisha NOTE: This high risk HPV mRNA assay detec ts fourt een high- risk HPV types (16, 18, 31, 33, 35, 39, 45, 51, 52, 56, 58, 59, 66, 68) witho ut diffe renti ation . COMME NT: Note: This speci men was revie wed by a Cytot echno logis t and/o r Patho logis t (as indic ated in this repor t) after evalu ation using the Thinp rep Imagi ng Syste m. CLINI LUCINA INFOR MATIO N: Menst rual Statu s: LMP (if appli cable ): Clini lucina Histo ry/Pr eviou s Pap: Type of Neopl kelsey (if appli cable ): Signi fican t Clini lucina Findi ngs: Other Histo ry: Hormo abiel (if appli cable ): PAP EDUCA ABIOLA L NOTE: The Pap Test is a scree baron test with an inher ent false negat ary rate. Liqui d-bas ed sampl ing may decre ase, but will not elimi indira, false negat ary resul ts. A negat ary resul t does not precl ude the prese nce and/o r devel opmen t of disea se, since the prese nce of abnor mal cells in the sampl e depen ds on the locat ion of the lesio n and sampl ing techn ique. Migdalia nued regul ar scree baron is the best metho d of cance r preve ntion . If repor laisha cytol ogic findi ng do not corre late with physi lucina and/o r histo rical findi ngs, furth er inves tigat ion is recom javier d, as clini dafne barrera nted. Not Available [facility] (Lab) [address], [place], [address], 2022 15:27:05 04/18/19 24 04/18/2023 FSH, LH, ESTRA DIOL estradiol 33.9 pg/mL This assay was perfo rmed using [employer] ratio n reage nts and test kits. Value s obtai alexandr with other assay metho ds or kits canno t be [facility] . Femal e Estra diol Range s: Folli cular phase 12.4- 233 pg/mL Ovula tion phase 41.0- 398 pg/mL Lutea l phase 22.3- 341 pg/mL Postm enopa usal< 5-138 pg/mL Healt hy Pregn ant Women 1st Trime ster1 54-32 43 pg/mL 2nd Trime ster1 561-2 1280 pg/mL 3rd Trime ster8 525-> 55844 pg/mL Not Available [facility] (Lab) [address] [place], [address], 04/19/2023 02:33:33 04/18/19 24 04/18/2023 FSH, LH, ESTRA DIOL FSH 40.8 mIU/m L This assay was perfo rmed using [employer] reage nts and test kits. Value s obtai alexandr with other assay metho ds or kits canno t be used [facility] . Femal es Folli cular : 3.5-1 2.5 mIU/m L Ovula tion: 4.7-2 1.5 mIU/m L Lutea l: 1.7-7 .7 mIU/m L Postm enopa use: 25.8- 134.8 mIU/m L Not Available [facility] (Lab) [address], [place], [address], 04/19/2023 02:33:33 04/18/19 24 04/18/2023 FSH, LH, ESTRA DIOL LH 29.7 mIU/m L This assay was perfo rmed using [employer] reage nts and test kits. Value s obtai alexandr with other assay metho ds or kits canno t be used [facility] . 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 FINAL DIAGN OSIS: Negat ary for Intra epith elial Leeanne n or Wilver lan (NIL) . Jeremías mejia d by Adolfo Okeefe am, CT on 2023 at 9:02 AM ----- ----- ----- ----- ----- ----- ----- ----- ----- ----- ----- ----- ----- ----- ----- ----- ----- ---- HPV RESUL TS: HPV mRNA E6/E7 : No HPV mRNA Detec laisha NOTE: This high risk HPV mRNA assay detec ts fourt een high- risk HPV types (16, 18, 31, 33, 35, 39, 45, 51, 52, 56, 58, 59, 66, 68) witho ut diffe renti ation . COMME NT: This speci men was revie wed by a Cytot echno logis t and/o r Patho logis t (as indic ated in this repor t) after evalu ation using the Thinp rep Imagi ng Syste m. CLINI LUCINA INFOR MATIO N: Menst rual Statu s: LMP (if appli cable ): Clini lucina Histo ry/Pr eviou s Pap: Type of Neopl kelsey (if appli cable ): Signi fican t Clini lucina Findi ngs: Other Histo ry: Hormo abiel (if appli cable ): PAP EDUCA ABIOLA L NOTE: The Pap Test is a scree baron test with an inher ent false negat ary rate. Liqui d-bas ed sampl ing may decre ase, but will not elimi indira, false negat ary resul ts. A negat ary resul t does not precl ude the prese nce and/o r devel opmen t of disea se, since the prese nce of abnor mal cells in the sampl e depen ds on the locat ion of the lesio n and sampl ing techn ique. Migdalia nued regul ar scree baron is the best metho d of cance r preve ntion . If repor laisha cytol ogic findi ng do not corre late with physi lucina and/o r histo rical findi ngs, furth er inves tigat ion is recom javier d, as clini dafne barrera nted. 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 -No evide nce of hyper plasi a or malig edyta . Elect matt mejia d by Stu Leigh MD on 2023 at 2:11 PM ----- ----- ----- ----- ----- ----- ----- ----- ----- ----- ----- ----- ----- ----- ----- ----- ----- ---- CLINI LUCINA INFOR MATIO N: n93.9 MICRO SCOPI C DESCR IPTIO N: A micro scopi c exami natio n was perfo rmed. GROSS DESCR IPTIO N: A. Endom etriu m. The speci men is label ed with the patie nt's name and demog raphi cs only. Recei germán in forma dannie is a 1.6 x 0.4 x 0.1 [address] gate of dark red tissu e. The entir e speci men is submi tted in one casse tte. Gross ed by Giles Huitron on Not Available [facility] (Lab) [address], [place], [address], 05/11/2023 15:15:20 04/22/19 25 04/22/2024 IMAGE GUIDE D PAP AND HPV REGAR DLESS image guided Pap, HPV regardless of Pap result SEE RESULT S BELOW CASE REPOR T: Cytol ogy Gynec ologi lucina Repor t Case: [id number] Autho nikky wheatley Provi channing: Hanh Thomson, RU Colle cted: 04/22 1659 Order ing Locat ion: [place] Patho [place]y Recei germán: 04/23 0231 First Scree n: Jaqueline kaur, Leatha bangura, CT Speci men: Aleyda draper Pap - Image d, Cervi x STATE MENT OF ADEQU ACY: Satis facto ry for evalu ation Trans forma tion zone compo nent prese nt ----- ----- ----- ----- ----- ----- ----- ----- ----- ----- ----- ----- ----- ----- ----- ----- ----- ---- FINAL DIAGN OSIS: Negat ary for Intra epith elial Leeanne salamanca or Wilver lan ([facility]) . Elect matt mejia d by Leatha kaur, CT on 025 at 1835 HYDRAULIC TESTER ----- ----- ----- ----- ----- ----- ----- ----- ----- ----- ----- ----- ----- ----- ----- ----- ----- ---- HPV RESUL TS: HPV mRNA E6/E7 : No HPV mRNA Detec laisha NOTE: This high risk HPV mRNA assay detec ts fourt een high- risk HPV types (16, 18, 31, 33, 35, 39, 45, 51, 52, 56, 58, 59, 66, 68) witho ut diffe renti ation . COMME NT: This speci men was revie wed by a Cytot echno logis t and/o r Patho logis t (as indic ated in this repor t) after evalu ation using the Thinp rep Imagi ng Syste m. CLINI LUCINA INFOR MATIO N: Menst rual Statu s: LMP (if appli cable ): Clini lucina Histo ry/Pr eviou s Pap: Type of Neopl kelsey (if appli cable ): Signi ficarnie t Clini lucina Findi ngs: Other Histo ry: Hormo abiel (if appli cable ): PAP EDUCA ABIOLA L NOTE: The Pap Test is a scree baron test with an inher ent false negat ary rate. Liqui d-bas ed sampl ing may decre ase, but will not elimi indira, false negat ary resul ts. A negat ary resul t does not precl ude the prese nce and/o r devel opmen t of disea se, since the prese nce of abnor mal cells in the sampl e depen ds on the locat ion of the lesio n and sampl ing techn ique. Migdalia nued regul ar scree baron is the best metho d of cance r preve ntion . If repor laisha cytol ogic findi ng do not corre late with physi lucina and/o r histo rical findi ngs, furth er inves tigat ion is recom javier d, as clini dafne barrera nted. Not Available [facility] (Lab) [address], [place], [address], 04/26/2024 19:39:34 04/26/19 24 04/26/2023 US, pelvi s No observ ation record ed. [email or web address] [facility] [address], [place], [address], 04/26/2023 17:51:38 04/26/19 24 04/26/2023 US, trans vagin al No observ ation record ed. [email or web address] [address], [place], [address], 04/26/2023 17:51:28 04/26/19 24 04/26/2023 US, pelvi s No observ ation record ed. [email or web address] [facility] [address], [place], [address], 05/02/2023 15:15:39 Result Notes None recorded. Problems Name Problem SNOMED Code Status Onset Date Resolution Date Notes Provider Name and Address Organization Details Recorded Time Bleeding 165967553 Completed 201802/15/2021 Abnormal uterine and vaginal bleeding , unspecif ied;Luigi rded Elsewher e: No Locat ion: [facility] S ource: EHR Music Assistant ender: N Practi ce ID: 0001 Brice lable Time: 02:30:00 PM Sarah Jensen [facility] 15:50:09 Atypical squamous cells of undeterm ined signific ance on cervical Papanico laou smear [id number] Completed 201002/15/2021 Pap Abnormal ASCUS;Pr actice ID: 0001 Sarah Jensen [facility], [facility] 15:50:04 Pregnanc y test negative [id number] Completed 201002/15/2021 Negative Pregnanc y Test;Pra ctice ID: 0001 Sarah Jensen [facility] 15:50:15 Ill-defi alexandr intestin al infectio n Completed 201102/15/2021 No Show Fee;Prac mary ID: 0001 Sarah Jensen [facility] 15:50:10 Speciali zed medical examinat ion Completed 201102/15/2021 Routine gynecolo gical examinat ion;Prac mary ID: 0001 Sarah Jensen [facility] 15:50:23 Screenin g for malignan t neoplasm of cervix Completed 201102/15/2021 Pap Smear;Pr actice ID: 0001 Sarah Jensen [facility], [facility] 15:50:17 Irregula r intermen strual bleeding [id number] Completed 201202/15/2021 Metrorrh agia;Pra ctice ID: 0001 Sarah Jensen [facility] 15:50:12 Dysfunct ional uterine bleeding Completed 201202/15/2021 DUB;Prac mary ID: 0001 Sarah Jensen [facility] 15:50:07 Screenin g for malignan t neoplasm of rectum Completed 201302/15/2021 Screenin g for malignan t neoplasm s of the rectum;P ractice ID: 0001 Sarah Jensen [facility] 15:50:18 Adult health examinat ion Completed 201402/15/2021 Routine general medical examinat ion at a [facility] facility ;Practic e ID: 0001 Sarah Jensen [facility] 15:50:[address] Concept Completed 201502/15/2021 Encntr for visual merchandiser exam (general ) (routine ) w/o abn findings ;Recorde d Elsewher e: No Locat ion: [facility] S ource: EHR Music Assistant ender: N Kelly ce ID: 0001 Brice lable Time: 11:00:00 AM Sarah Jensen [facility] 15:50:[address] Concept Completed 201602/15/2021 Encntr for general adult medical exam w/o abnormal findings ;Recorde d Elsewher e: No Locat ion: [facility] S ource: EHR Music Assistant ender: N Kelly ce ID: 0001 Brice lable Time: 03:00:00 PM Sarah Jensen [facility] 15:50:20 Abnormal uterine bleeding [id number] 100 Completed 201802/15/2021 Dysfunct ional uterine bleeding ;Recorde d Elsewher e: No Locat ion: [facility] S ource: EHR Music Assistant ender: N Christenti ce ID: 0001 Brice lable Time: 03:30:00 PM Sarah [facility] 15:50:00 Evaluati on finding [id number] Completed 201402/15/2021 Oth abn and inconclu sive findings on dx imaging of breast;R ecorded Elsewher e: No [facility] S ource: EHR Music Assistant ender: N Christenti ce ID: 0001 Brice liana Time: 04:48:16 PM Sarah villatoro [facility] 15:50:05 Problem Notes None recorded. Procedures Surgical History Date Name Laterality Status Provider Name and Address Organization Details Recorded Time 05/10/19 24 Endometrial Biopsy completed Elly Perez [facility]- [address], [place], [address], [facility] 05/11/2023 11:31:59 04/18/19 24 Date of Last Pap Smear completed Katiana Najera [facility] 04/22/2024 17:10:38 02/21/20 22 Date of Last Mammogram completed Sarah Torres [facility] 04/13/2022 16:48:24 09/24/19 21 Date of Last Colonoscopy completed Pia Grimm [facility] 04/18/2023 16:44:12 03/26/19 21 completed Sarah Jensen [facility] 02/15/2021 16:17:12 04/23/19 15 Colposcopy completed Sarah Jensen [facility] 02/15/2021 15:52:03 03/31/18 97 excision of bunion completed Elly Perez [facility]- [address], [place], [address], [facility] 04/13/2022 16:54:30 LEEP completed Sarah Jensen [facility] 02/15/2021 15:55:59 complete repair of rotator cuff completed Sarah Jensen [facility] 02/15/2021 15:56:14 cone biopsy of cervix completed Sarah Jensen [facility] 02/15/2021 15:56:24 Appendectomy completed Sarah Jensen [facility] 02/15/2021 15:56:33 Imaging Results None recorded. Procedure Notes None recorded. Medical Equipment None Reported. Allergies No known drug allergies Medications Name Sig Start Date Stop Date Status Note LastModified by Organization Details LastModified Time fluconazo le 150 mg tablet TAKE 1 TABLET BY MOUTH NOW AND ANOTHER IN 72 HOURS 04/22 completed Not Available Not Available Not Available Adderall 5 mg tablet take 1 tablet by oral route 2 times every day before breakfas t and at noon 09/10 completed Prescrib ed Elsewher e: Yes Loca tion: [facility] By: cora Hudson r DateTime : 04/23/19 15 03:30:00 PM Not Available Not Available Not Available phentermi ne 15 mg capsule take 1 capsule by oral route every day before breakfas t 07/10 completed Prescrib ed Elsewher e: Yes Loca tion: [facility] By: cora Hudson r DateTime : 04/22/19 19 03:00:00 PM Not Available Not Available Not Available metronida zole 500 mg tablet Take 1 tablet every 12 hours by oral route for 7 days. 04/13 completed Not Available Not Available Not Available neomycin- polymyxin -dexameth 3.5 mg/mL-10, 000 unit/mL-0 .1% eye drops INSTILL 1 DROP TO BOTH EYES FOUR TIMES DAILY FOR 5 DAYS. 04/22 completed Not Available Not Available Not Available scopolami ne 1 mg over 3 days transderm al patch APPLY 1 PATCH TOPICALL Y TO THE SKIN EVERY 72 HOURS NEEDED FOR NAUSEA 04/13 completed Not Available Not Available Not Available methylphe nidate ER 18 mg tablet,ex tended release 24 hr 04/18 completed Not Available Not Available Not Available Diflucan 200 mg tablet take 1 tablet by oral route 06/10 completed Prescrib ed Elsewher e: No Locat ion: [facility] DateTime : 05/26/19 04:23:05 PM Not Available Not Available Not Available multivita min active Not Available Not Available Not Available ID NOW COVID-19 Test Kit TEST DIRECTED TODAY 04/13 completed Not Available Not Available Not Available Vitals Date Recorded Systolic blood pressure Diastolic blood pressure Provider Name and Address Organization Details Last Updated DateTime 04/13/2022 126 mm[Hg] 80 mm[Hg] Elly Perez, [facility] [address], [place], [address], [facility] 04/13/2022 16:55:27 Date Recorded Body weight Provider Name an d Address Organization Details Last Updated DateTime 04/13/2022 05081.45 g Sarah Torres [facility] 04/13/2022 16:47:48 Date Recorded Systolic blood pressure Diastolic blood pressure Provider Name and Address Organization Details Last Updated DateTime 04/18/2023 118 mm[Hg] 80 mm[Hg] Elly Perez, [facility] [address], [place], [address], [facility] 04/19/2023 10:09:20 Date Recorded Body weight Body mass index (BMI) Body height Systolic blood pressure Diastolic blood pressure Provider Name and Address Organization Details Last Updated DateTime 04/18/2023 56072.93 g 27.4 kg/m2 166.37 cm 129 mm[Hg] 84 mm[Hg] Pia Grimm [facility] 16:40:37 Date Recorded Body height Body mass index (BMI) Body weight Systolic blood pressure Diastolic blood pressure Provider Name and Address Organization Details Last Updated DateTime 04/22/2024 166.37 cm 28.5 kg/m2 97262.35 g 125 mm[Hg] 82 mm[Hg] Katiana Najera [facility] 5 17:09:48 Date Recorded Body height Body mass index (BMI) Body weight Systolic blood pressure Diastolic blood pressure Provider Name and Address Organization Details Last Updated DateTime 05/10/2023 166.37 cm 27.1 kg/m2 34362.18 g 132 mm[Hg] 84 mm[Hg] Katlyn Maile [facility] 16:04:43 Social History Question Answer Notes LastModified by Organizat ion Details LastModified Time Tobacco Smoking Status Never Smoker Sarah Torres irving, [facility] 04/13/2022 16:48:27 How Many Years Have You Consumed Alcohol? 20 [email or web address] Information not available 05/10/2023 Are You Blind Or Do You Have Difficulty Seeing? No Information n ot available 02/15/2021 What Is Your Level Of Caffeine Consumption? Occasional Information not available 02/15/2021 How Much Tobacco Do You Chew? None Information not available 04/13/2022 In The 14 Days Before Symptom Onset, Have You Had Close Contact With A Laboratory-confirm ed COVID-19 While That Case Was Ill? No Information n ot available 04/13/2022 In The 14 Days Before Symptom Onset, Have You Had Close Contact With A Person Who Is Under Investigation For COVID-19 While That Person Was Ill? No Information not available 04/13/2022 Have You Been To An Area Known To Be High Risk For COVID-19? No Information not available 04/13/2022 Are You Deaf Or Do You Have Serious Difficulty Hearing? No Information not available 02/15/2021 What Type Of Diet Are You Following? REGULAR Information n ot available 02/15/2021 What Is The Highest Grade Or Level Of School You Have Completed Or The Highest Degree You Have Received? [id number] Information not available 04/13/2022 Are There Any Guns Present In Your Home? No Information not available 04/13/2022 Do You Use Your Seat Belt Or Car Seat Routinely? Yes Information not available 02/15/2021 Do You Have Smoke And Carbon Monoxide Detectors In Your Home? Yes Information not available 02/15/2021 How Much Tobacco Do You Smoke? No Information not available 04/13/2022 Do You Use Sunscreen Routinely? Yes Information not available 02/15/2021 Have You Used IV Drugs? No Information not available 04/13/2022 Do You Have Difficulty Walking Or Climbing Stairs? No Information not available 04/13/2022 Sex: Unknown Functional Status Question Answer Note LastModified by Organizat ion Details LastModified Time Do you use any illicit or recreational drugs? No Information not available 02/15/2021 What is your level of alcohol consumption? Occasional Information not available 02/15/2021 Are you able to walk? YESWOREST Information not available 02/15/2021 Are you able to care for yourself? Yes Information n ot available 04/13/2022 What is your occupation? teacher Information not available 04/13/2022 Do you have difficulty dressing or bathing? No Information not available 04/13/2022 What is your exercise level? Moderate Information not available 04/13/2022 Mental Status Question Answer Note LastModified by Organization D etails LastModified Time Do you feel stressed (tense, restless, nervous, or anxious, or unable to sleep at night)? [id number] Information not available 02/15/2021 Family History Relationship Description Onset Age of this Age Resolved Age Notes LastModified by Organization Details LastModified Time Mother Uterine fibroid polyp [email or web address] Not available 2024 16:55:11 Mother Polyp of colon [email or web address] Not available 2024 16:55:11 Paternal Grandfather Alzheimer's disease [email or web address] Not available 2024 16:55:11 Paternal Grandfather Heart disease Not available 2020 15:55:06 Paternal Grandfather Cerebrovascu lar accident Not available 15:55:11 Sister Malignant neoplasm of skin [email or web address] Not available 2024 16:55:11 Medical History Condition Response History of abnormal pap Y Dermatologic Disorders Y Gynecological History Statement/Question Response Abnormal Pap Y Date of Last Mammogram 02/20/2022 Date of LMP N On BCP's at Conception? N STIs/STDs N Was last menstrual period normal N HPV Vaccine N Colposcopy 04/23/2014 Duration of Flow (days) 4 12 Current Control Method None Age at First Child 20 Are cycles usually normal N Date of Last Colonoscopy 09/23/2020 Sexually Active? Y Menses Monthly N Age of first menstrual cycle 11 Date of Last Pap Smear 04/18/2023 Sexual Problems? N LMP Unknown 03/26/2020 N Obstetrics History GPAL:G 2 P 0 0 0 2 Type Value Living 2 Total 2 Past Encounters Encounter ID Performer Location Encounter Start Date Encounter Closed Date Diagnosis/Indication Diagnosis SNOMED-CT Code Diagnosis ICD10 Code Diagnosis Note [id number] Elly Perez , [facility] [address] [address] 02/15/2021 16:05:54 02/16/2021 19:54:21 Gynecologic examination [id number] Z01.419 Suggested Calcium with Vitamin D 1200-1500m g daily. Patient advised to get an annual flu shot in the fall and she could obtain at [facility] or [facility] clinic. Also to obtain TDap vaccinatio n if you have not had one in the last 10 years. Recommend yearly mammograms . Encouraged monthly self breast exams. Encourage safe sexual practices, to use condoms and limit partners if not already in a monogamous relationsh ip. Engage in daily exercise of low impact aerobic exercise 45-60 minutes 4-5 times weekly. Avoid tobacco and illicit drugs as well as using moderation with alcohol intake less than 1-2 8 oz beverages daily. This lifestyle behavior pattern will lead to less health conditions and longer life span. If BMI greater than 25 weight watchers or dietary consult advised. All questions have been answered. Patient appears to understand informatio n, but if you have any questions please call or respond to this email. Pap/hpv sentDeclin ed std screenMamm o orderedDex a n/aCOlon screen discussed PCPGenetic screen discussed Irregular periods 098401 07 N92.6 Will update labs & decide if an US is necessary as likely perimenopa use. Discussed Mirena IUD moving forward. Discussed all control options and pt would like mirena IUD. I have discussed in detail all risks and benefits including risk of infection and perforatio n. She understand s she will need to contact office with next menses or may abstain, complete serum HCG day before placement, if neg can have IUD placed next day. Aware of need to verify with insurance device coverage. Literature given. All questions answered to patient satisfacti on. Will consider this option if testing is wnl & no abnormalit y present. Vaginitis [id number] N76.0 Will send swab to ensure no issuesHas odor but d/.c not necessaril y out of the norm on exam [id number] Elly Perez [facility] [address] [address] 04/13/2022 16:40:42 04/13/2022 17:34:30 Gynecologic examination [id number] Z01.419 Z11.51 Suggested Calcium with Vitamin D 1200-1500m g daily. Patient advised to get an annual flu shot in the fall and she could obtain at [facility] or [facility] care clinic. Also to obtain TDap vaccinatio n if you have not had one in the last 10 years. Recommend yearly mammograms . Encouraged monthly self breast exams. Encourage safe sexual practices, to use condoms and limit partners if not already in a monogamous relationsh ip. Engage in daily exercise of low impact aerobic exercise 45-60 minutes 4-5 times weekly. Avoid tobacco and illicit drugs as well as using moderation with alcohol intake less than 1-2 8 oz beverages daily. This lifestyle behavior pattern will lead to less health conditions and longer life span. If BMI greater than 25 weight watchers or dietary consult advised. All questions have been answered. Patient appears to understand informatio n, but if you have any questions please call or respond to this email.Pap/ hpv sentSTD Screen declinedGe netic Screen discussedC olon Screen PCPDexa Screen naRoutine Labs PCPmammo ordered Screening mammography 24 166997 Z12.31 [id number] Elly Perez [facility] [address] [address] 04/18/2023 16:27:44 04/19/2023 12:07:28 Gynecologic examination 51904403 Z01.419 Z11.51 Suggested Calcium with Vitamin D 1200-1500m g daily. Patient advised to get an annual flu shot in the fall and she could obtain at [facility] or [facility] care clinic. Also to obtain TDap vaccinatio n if you have not had one in the last 10 years. Recommend yearly mammograms . Encouraged monthly self breast exams. Encourage safe sexual practices, to use condoms and limit partners if not already in a monogamous relationsh ip. Engage in daily exercise of low impact aerobic exercise 45-60 minutes 4-5 times weekly. Avoid tobacco and illicit drugs as well as using moderation with alcohol intake less than 1-2 8 oz beverages daily. This lifestyle behavior pattern will lead to less health conditions and longer life span. If BMI greater than 25 weight watchers or dietary consult advised. All questions have been answered. Patient appears to understand informatio n, but if you have any questions please call or respond to this email.Pap/ hpv sentSTD Screen declinedGe netic Screen discussedC olon Screen 1Dexa Screen naRoutine Labs ordered Screening mammography 24 349546 Z12.31 Goes to see specialist to follow up on cysts Menopausal symptom 44924 002 N95.1 Very irregular periodsBlo atingSays FSH/LH May 2022 was told Menopausal but still having cycles.Vas omotor sx's + We discussed trial of HRT low dose if work up for AUB/irregu lar cycles returns and is wnl.Will reach out with lab work to decide next steps and POC.H/O given from [facility] for additional home reference [id number] JULIA Gibbons [facility] [address] [address] 04/22/2024 16:54:25 04/23/2024 14:08:06 Gynecologic examination 39349082 Z01.419 WWEpostmen opausalPap - done todaySTI screen - declinedMa mmogram - UTDColon cancer screening - UTDDexa - n/aRoutine labs - UTD/PCPRTC in 1 yr or sooner if needed Do monthly self breast exams.It is advised to get annual flu shot in the fall and she could obtain at local pharmacy. If you haven't received the Tdap vaccine in the last 10 years you should obtain one as well.Have mammogram yearly, bone density every 2-3 years and stay up to date on colon cancer screening. Engage in regular exercise. Avoid tobacco and illicit drugs. This lifestyle behavior pattern will lead to less health conditions and longer life span. If BMI greater than 25 dietary consult advised.Qu estions have been answered. Perimenopausal state 220 4692700 10574 Z78.0 Discussed management options for VMS (hormonal and nonhormona l)question s answeredme nonotes handout given [id number] Stalin Collado MD [facility] [address] [address] 04/26/2023 15:45:51 04/26/2023 16:32:02 Abnormal uterine bleeding [id number] 9100 N93.9 Irregular periods 382194 07 N92.6 [id number] Elly Perez [facility] [address] [address] 05/10/2023 15:50:54 05/11/2023 12:25:32 Abnormal uterine bleeding [id number] 9100 N93.9 EMBx completedW ill update on results and if all is wnl we can discuss what she has decided to use for HRT if appropriat e. Health Concerns Section Related Observation LastModified by Organization Detai ls LastModified Time None Recorded Concern Status LastModified by Organization Details LastModified Time None Recorded Advance Directives Directive None Recorded Payers Encounter Date Sequence Insurance Name Policy Number Policy Malave Covered Member ID Malave Member ID Guarantor Name 04/13/2022 1 [facility] [id number] Mamadou Burrell Geppert [id number] Mamadou Burrell Geppert 04/18/2023 1 [facility] [id number] Mamadou Burrell Geppert [id number] Mamadou Burrell Geppert 04/26/2023 1 [facility] [id number] Mamadou Burrell Geppert [id number] Mamadou Burrell Geppert 05/10/2023 1 [facility] [id number] Mamadou Burrell Geppert [id number] Mamadou Burrell Geppert 04/22/2024 1 [facility] [id number] Mamadou Burrell Geppert [id number] Mamadou Burrell Geppert Notes Date Note Type Note Provider Name and Address Organization Details Recorded Time 04/13/19 23 text/htm l Annual GYNReported bypatient.History:no gynecologic complaints Menstrual cycle:Normal menses Urinary symptoms:No hematuria; No incontinence Vulva:No genital lesion Vagina:Normal vaginal discharge Breast:No breast pain; No breast lump; No nipple discharge Current Contraception: control not practiced Sexual complaints:No sexual complaints; No pain during intercourse; Normal libido Menopausal Symptoms:No menopausal symptoms; Normal vaginal lubrication Psychological symptoms:No depression; No anxiety; No PMDD Preventive measures:Encourage self breast examination; Encourage regular exercise; Encourage no tobacco use; Encourage regular mammograms starting age 40; Followed with yearly pap smears; History of abnormal pap smear/cervical dysplasia; Needs to schedule mammogram; Up to date on colonoscopy screening Elly Perez [facility] [address], [place], [address], [facility] 04/13/2022 17:29:43 04/18/19 24 text/htm l Annual GYNReported bypatient.Menstrual cycle:Perimenopausal Urinary symptoms:No hematuria; No incontinence Vulva:No genital lesion Vagina:Normal vaginal discharge Breast:No breast pain; No breast lump; No nipple discharge Current Contraception: control not practiced Sexual complaints:No sexual complaints; Normal libido Menopausal Symptoms:Hot flashes(Mood changes more irritability/PMS LIKE SX'S);Inadequacy of lubrication of vaginal mucosa Psychological symptoms:No depression; No anxiety; No PMDD Preventive measures:Encourage self breast examination; Encourage regular exercise; Encourage no tobacco use; Encourage regular mammograms starting age 40; Followed with yearly pap smears; Needs to schedule mammogram; Up to date on colonoscopy screening LISA Osman [address], [place], [address], [facility] 04/19/2023 10:12:59 05/10/19 24 text/htm l Here today for EMBx due to recent lab work/US results. Elly Perez [facility] [address], [place], [address], [facility] 05/11/2023 11:33:02 04/22/19 25 text/htm l Annual GYNReported bypatient.Menstrual cycle:Perimenopausal Urinary symptoms:No hematuria; No incontinence Vulva:No genital lesion Vagina:Normal vaginal discharge Breast:No breast pain; No breast lump; No nipple discharge Sexual complaints:No sexual complaints; No pain during intercourse; Normal libido Menopausal Symptoms:Normal vaginal lubrication;Hot flashes Psychological symptoms:No depression; No anxiety; No PMDD Preventive measures:Encourage self breast examination; Encourage regular exercise; Encourage no tobacco use; Encourage regular mammograms starting age 38Notes:49yo wweperimenopausaloccasional hot falshesh/o LEEPlast pap 03/2023 : nilm, HPV (-)mammogram UTDcolonoscopy UTD JULIA Gibbons [address], [place], [address], [place] [facility] 04/23/2024 11:22:47 OBGyn Episode Ob Episode Information Episode Created Date Number of Fetuses Patient Bloodtype Patient rh Status Prepregnancy Weight lbs Domestic Partner Domestic Partner Phone Father Name Consulting Application Engineer Status 02/16/20 21 1 CLOSED Fetus Data First Name Last Name Admitted to NICU Weight (g) Sex Living Outcome Pediatric Complications Fetus ID Race Codes Race Delivery Type M [id number] Vaginal Delivery Tomas Calculation Initial Tomas Date Initial Exam Date Initial Exam Provider Initial Ultrasound Date Last Menstrual Period Date Ultra Sound Weeks Gestation 0 Eighteen To Twenty Week Tomas Update Ultra Sound Date Fundal Height At Umbil Quickening Date Ultra Sound Latest Weeks Gestation Final Tomas Confirmed By Final Tomas Confirmed Date Final Tomas Date Ultra Sound Latest Days Gestation 0 0 Menstrual History Last Menstrual Date Menses Monthly On Bcp Conception Prior Menses Frequency Hcg Plus Date Menarche Onset Age Delivery Information Delivery Date Delivery Type Labor Anesthesia Weeks Gestation Incision Type Labor Labor Length Hrs Delivered By Post Complications Tubal Sterilization Discharge Date Comments 8 Discharge Information Feeding Method Contraceptive Method Maternal HG B and HCT Levels Ob Episode Information Episode Created Date Number of Fetuses Patient Bloodtype Patient rh Status Prepregnancy Weight lbs Domestic Partner Domestic Partner Phone Father Name Consulting Application Engineer Status 02/16/20 21 1 CLOSED Fetus Data First Name Last Name Admitted to NICU Weight (g) Sex Living Outcome Pediatric Complications Fetus ID Race Codes Race Delivery Type F [id number] Vaginal Delivery Tomas Calculation Initial Tomas Date Initial Exam Date Initial Exam Provider Initial Ultrasound Date Last Menstrual Period Date Ultra Sound Weeks Gestation 0 Eighteen To Twenty Week Tomas Update Ultra Sound Date Fundal Height At Umbil Quickening Date Ultra Sound Latest Weeks Gestation Final Tomas Confirmed By Final Tomas Confirmed Date Final Tomas Date Ultra Sound Latest Days Gestation 0 0 Menstrual History Last Menstrual Date Menses Monthly On Bcp Conception Prior Menses Frequency Hcg Plus Date Menarche Onset Age Delivery Information Delivery Date Delivery Type Labor Anesthesia Weeks Gestation Incision Type Labor Labor Length Hrs Delivered By Post Complications Tubal Sterilization Discharge Date Comments 2 Discharge Information Feeding Method Contraceptive Method Maternal HG B and HCT Levels
--- OUTSIDE RECORDS SUMMARY | 2024-08-29 07:39 | XMS_ITS | Clinical Summary ---
Author Organization 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 Gender Identity Not on file Sexual Orientation [...] 2023 Zoster Immunization (1 of 2) 2023 SARS-COV-2 Immunization (4 - season) 2023 04/04/2021, 06/17/2020, 04/27/2020 Influenza Immunization (Seas on Ended) 2024 Respiratory Syncytial Virus (RSV) Immunization (Adult) (1 - 1-dose 75+ series) 2048 DTaP/Tdap/Td Immunization Discontinued 07/18/2013 TdaP Immunization Completed 07/18/2013 Human Papillomavirus (HPV) Immunization Aged Out No longer eligible based on patient's age to complete this topic Meningococcal Immunization (ACWY) Aged Out No longer eligible based on patient's age to complete this topic Rotavirus Immunization Aged Out No lo nger eligible based on patient's age to complete this topic
--- OUTSIDE RECORDS SUMMARY | 2024-08-29 07:39 | XMS_ITS | Clinical Summary ---
Author Organization [facility] Address [address] [place] [address] Care Team Providers Care Compliance Quality Performance Analyst Name Role Phone Unavailable Primary Care Provider Unavailabl e Source Comments [facility],non-owned Affiliates and Associated Physician Practices is amultiple site organization consisting of ambulatory clinics and hospital sitesin [place], [place], [place] and [place]. This disclosure is being madepursuant to the Care Everywhere program and may not contain all information available regarding this patient. Last updated 17.[facility] Social History Tobacco Use Types Packs/Day Years Used Date Smoking Tobacco: Never Assessed Comments Unknown Sex and Gender Information Value Date Recorded Sex Assigned at Not on file Legal Sex Female 8:21 AM CDT Gender Identity Not on file Sexual [...] VACCINE (1 of 2) 2023 COVID-19 VACCINE ( - 2023-2 5 season) 2023 DEPRESSION SCREENING 03/26/2024 INFLUENZA VACCINE (Season Ended) 2024 HIB VACCINE Aged Out No longer eligi [...] on patient's age to complete this topic [place] [place] [address] Member Subscriber Plan / Payer (Ef fective for All Dates) Name:Pedrito Moore Relation to Subscriber:Self Name:PEDRITO MOORE Payer ID:[id number] (NAIC) Type:[employer] Address: [place] [id number] [place] [phone]
--- OUTSIDE RECORDS SUMMARY | 2024-08-29 07:39 | XMS_ITS | Encounter Summary ---
Author Organization [facility] Address [address] [place] [address] Care Team Providers Care Blockman Name Role Phone Unavailable Primary Care Provider Unavailabl e Encounter Details Date Type Department Care Team (Late st Contact Info) Description 10/27/2021 Lab Requisition [facility] [address] [place] [id number] Andrew Porras MD [address] [place] [address] Social History Tobacco Use Types [...] AM CDT) Case Report Dermatopathology Report Case: [id number] Authorizing Provider: Andrew Porras MD Collected: 10/27/2021 12:00 AM Ordering Location: [facility] Received: 10/27/2021 05:17 PM Pathologist: Kati Harp MD Specimen: Skin, right nasal sidewall 2 1:38 PM CDT DERMATOPATHOLOGY LABORATORY Amended Report Clerical error, change in gender from male to female. 2 1:38 PM CDT DERMATOPATHOLOGY LABORATORY Final Diagnosis Specimen A. SKIN, right nasal sidewall: SQUAMOUS CELL CARCINOMA, MODERATELY DIFFERENTIATED (C44.321) 2 1:38 PM CDT DERMATOPATHOLOGY LABORATORY Amendment electronically signed by Kati Harp MD on 11/09/2021 at 1338 CDT at 1420 CDT Clinical History AK vs. BCCA vs. Other. Path# [id number] 2 1:38 PM CDT DERMATOPATHOLOGY LABORATORY Gross Description Specimen A: Received is one formalin filled container labeled with the patient's name and designated right nasal sidewall. The specimen consists of a shave biopsy measuring [id number]. Jar 0. 2 1:38 PM CDT DERMATOPATHOLOGY [...] characteristic determined by the Dermatopathology Laboratory at [facility], directed by Dr. Gi Valentine. These tests need not be, and therefore are not, approved by the [place] Food and Drug Administration. The tests are used for clinical purposes. Billing Codes Specimen Charges Stain Charges 74934 1 2 1:38 PM CDT DERMATOPATHOLOGY LABORATORY Embedded Images 2 1:38 PM CDT DERMATOPATHOLOGY LABORATORY Pathology/Cytolog y TISSUE SPECIMEN FROM SKIN / Unknown 10/27/2021 10/27/2021 5:17 PM CDT us Andrew Porras MD LAB - PATHOLOGY/CYTOLOGY ORDER HARSH Edited Result - Final DERMATOPATHOLOGY LABORATORY [facility] - Department of Dermatology [address], [address] [phone] documented in this encounter Visit Diagnoses Not on filedocumented in this encounter
[2024-08-29 07:53] LABS: Basophils Absolute Auto 0.09 K/mm3 (0.00-0.10); Basophils Percent Auto 1.4 % (0.0-1.0); Eosinophils Absolute Auto 0.53 K/mm3 (0.02-0.50); Hematocrit 41.8 % (35.0-49.0); Hemoglobin 13.3 g/dL (12.0-15.0); Immature Granulocyte Absolute 0.02 K/mm3 (0.00-0.00); Immature Granulocyte Percent A 0.3 % (0.0-0.0); Lymphocytes Absolute Auto 2.39 K/mm3 (1.10-4.50); Lymphocytes Percent Auto 35.9 % (18.0-42.0); Mean Corpuscular HGB Conc 31.8 g/dL (32-36); Mean Corpuscular Hemoglobin 30.9 pg (27.0-31.0); Mean Corpuscular Volume 97.2 fL (78.0-102.0); Mean Platelet Volume 11.5 fl (9.2-11.8); Monocytes Absolute Auto 0.49 K/mm3 (0.10-0.90); Monocytes Percent Auto 7.4 % (2.0-11.0); Neutrophils Absolute Auto 3.13 K/mm3 (1.70-7.20); Platelet Count Result 272 K/mm3 (150-420); Red Cell Distribution Width 12.6 % (11.6-14.4); White Blood Count 6.7 K/mm3 (4.8-10.8)
[2024-08-29 12:25] LABS: Iron 46 ug/dL (37-170)
[2024-08-29 12:35] LABS: Percent Iron Saturation 14 % (20-50)
[2024-08-29 15:26] LABS: Alanine Aminotransferase 16 U/L (6-35); Albumin Level 4.1 g/dL (3.5-5.1); Alkaline Phosphatase 60 U/L (38-126); Anion Gap 4 mmol/L (4-12); Aspartate Amino Transferase 26 U/L (14-36); Bilirubin,Total 0.4 mg/dL (0.2-1.3); Blood Urea Nitrogen 18 mg/dL (7-17); Calcium 9.4 mg/dL (8.4-10.2); Carbon Dioxide 29 mmol/L (22-30); Chloride 106 mmol/L (98-107); Cholesterol 189 mg/dL (0-200); Estimated Glomerular Filt Rate > 60; Glucose 97 mg/dL (65-110); HDL Direct 68 mg/dL; LDL Cholesterol Calculated 106 mg/dL (<130); Osmolality Calculated 289 mOsm/kg (285-295); Potassium 5.2 mmol/L (3.4-5.0); Sodium 139 mmol/L (137-145); Total Protein 6.9 g/dL (6.3-8.2); Triglycerides 74 mg/dL (<150)
== END 2024-08-29 07:35 | disposition home or self-care (01) ==
LOC: CHSLAB 07:35
PROVIDERS: PCP Family Medicine; Visit Provider Family Medicine
DX: E66.3 Overweight (principal); Z79.899 Other long term (current) drug therapy; D64.9 Anemia, unspecified
CPT/HCPCS: 36415; 80053; 80061; 82728; 83540; 83550; 84443; 85025

== ENCOUNTER 2024-12-23 07:02 | Outpatient (CLI) | payer OTHER, SELFPAY ==
--- OUTSIDE RECORDS SUMMARY | 2024-12-23 07:08 | XMS_ITS | Clinical Summary ---
Author Organization [facility] Address [address] [place] [address] Care Team Providers Care Apartment Property Manager Name Role Phone Unavailable Primary Care Provider Unavailabl e Allergies No known active allergies Medications neomycin-polymy bennett-dexAMETHaso ne (Maxitrol) 3.5mg/mL-10,000 unit/mL-0.1 % suspension Administer 1 drop into both eyes three times daily for 5 days. 5 mL Active Encounters Date Type Department Care Team Description 12/09/2024 External Device Data [facility] ABSTRACTION Provider, Abstract 10/28/2024 External Device Data [facility] ABSTRACTION Provider, Abstract 10/08/2024 External Device Data [facility] ABSTRACTION Provider, Abstract 10/08/2024 External Device Data [facility] ABSTRACTION Provider, Abstract 10/08/2024 External Device Data [facility] ABSTRACTION Provider, Abstract 10/08/2024 External Device Data [facility] ABSTRACTION Provider, Abstract 10/07/2024 External Device Data [facility] ABSTRACTION Provider, Abstract from Last 3 Months Social History Tobacco Use Types Packs/Day Years Used Date Smoking Tobacco: Never Assessed Comments Unknown Sex and Gender Information Value Date Recorded Sex Assigned at Not on file Legal Sex Female 3:31 PM CDT Gender Identity Not on file Sexual Orientation Not on file Plan of Treatment Health Maintenance Due Date Last Done Comments DTAP/TDAP/TD VACCINES (1 - Tdap) 1992 HEPATITIS B VACCINES (1 of 3 - 19+ 3-dose series) 03/27 HPV/Cotest (21-29) 1994 CERVICAL CANCER SCREENING 2003 HPV/Cotest (30-65) 2003 PAP SMEAR 2003 BREAST CANCER SCREENING 2013 COLORECTAL SCREENING 2018 Colorectal Cancer Screening 2018 FIT-DNA Q 3 years 2018 FIT/FOBT Q 1 year 2018 Flex Sig/CT Colonography Q 5 years 2018 ZOSTER VACCINE (1 of 2) 2023 INFLUENZA VACCINE (#1) 2024 Insurance RX [employer] (INTERNAL) [facility] [employer] [facility]
--- OUTSIDE RECORDS SUMMARY | 2024-12-23 07:08 | XMS_ITS | Clinical Summary ---
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 Gender Identity Not on file Sexual Orientation Not on file Plan of Treatment Health Maintenance Due Date Last Done Comments Hepatitis C Virus (HCV) Screening 1973 Hepatitis B Immunization (1 of 3 - 19+ 3-dose series) 1992 Pap Smear 1994 Cervical Cancer Screening (CCS) 2003 HPV/Cotest 2003 Cologuard 2018 Colonoscopy 2018 Colorectal Cancer Screening 2018 Immunochemical Fecal Occult Blood 2018 Pneumococcal Immunization (5 0+ years) (1 of 1 - PCV) 2023 Zoster Immunization (1 of 2) 2023 Influenza Immunization (#1) 2024 SARS-COV-2 Immunization ( season) 2024 04/04/2021, 06/17/2020, 04/27/2020 Respiratory Syncytial Virus (RSV) [...]
--- OUTSIDE RECORDS SUMMARY | 2024-12-23 07:08 | XMS_ITS | Clinical Summary ---
Author Organization [facility] Address [address] [place] [address] Care Team Providers Care Tower Watchman Name Role Phone Unavailable Primary Care Provider Unavailabl e Source Comments [facility],non-owned Affiliates and Associated Physician Practices is amultiple site organization consisting of ambulatory clinics and hospital sitesin [place], [place], [place] and [place]. This disclosure is being madepursuant to the Care Everywhere program and may not contain all information available regarding this patient. Last updated 17.[facility] Social History Tobacco Use Types Packs/Day Years [...] SCREENING 1973 LIPID TESTING 1973 MAMMOGRAM 1973 HIV SCREENING 1988 HEPATITIS C SCREENING 04/13/1991 DTAP/TDAP/TD VACCINES (1 - Tdap) 1992 HEPATITIS B VACCINE (1 of 3 - 19+ 3-dose series) 1992 PNEUMOCOCCAL VACCINE 50+ (1 of 1 - PCV) 2023 ZOSTER VACCINE (1 of 2) 2023 DEPRESSION SCREENING 03/26/2024 COVID-19 VACCINE (1 - 2023-2 5 season) 2024 INFLUENZA VACCINE (#1) 2024 HIB VACCINE Aged Out No longer [...] patient's age to complete this topic Insurance [place] [id number] [place] [id number]
--- OUTSIDE RECORDS SUMMARY | 2024-12-23 07:08 | XMS_ITS | Clinical Summary ---
Author Organization [facility] Address [address] [place] [id number] Care Team Providers Care Food Assembler Name Role Phone Unavailable Primary Care [...] 4:31 PM CDT Height 170.2 cm (5' 7) 12/03/2014 4:31 PM CDT Body Mass Index [...] Screening with HPV 2003 Mammogram Screening 2013 Pneumococcal Vaccine: 50+ Ye ars (1 of 1 - PCV) 2023 Zoster Vaccines (1 of 2) 2023 COVID-19 Vaccine (2023-2 5 season) 2024 Meningococcal B Vaccine Aged Out No l onger eligible based on patient's age to complete this topic Meningococcal Vaccine Aged Out No mariah dez eligible based on patient's age to complete this topic RSV Immunizations Under 20 Months Aged Out No longer eligible based on patient's age to complete this topic
--- OUTSIDE RECORDS SUMMARY | 2024-12-23 07:08 | XMS_ITS | Clinical Summary ---
Author Organization [facility] Address [address] [place] [address] Care Team Providers Care Regulator Operator Name Role Phone Tyra Agudelo DO Primary Care Provider [phone]- [phone] Allergies No known active allergies Medications methylphenidate [...] discussed. She can give an update in [place] in 3-4 weeks. 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 Gender Identity Female 11/25/2020 1:15 PM CDT [...] 07/19/2023 07/18/2013 Covid-19 Vaccine ( - season) 2024 04/04/2021, 06/17/2020, 04/27/2020 Influenza Vaccine (#1) 2024 Breast Cancer Screening-Mammogram 09/05/2025 09/05/2024, 08/23/2023, 08/15/2022, Additional history exists Colon Cancer Screening-Colonoscopy 09/23/2030 09/23/2020 Hepatitis C Screening Completed 06/22/2020 Pneumococcal vaccine <65 Aged Out No longer eligible based on patient's age to complete this topic Procedures Procedure Name Priority Date/Time Associated Diagnosis Comments SCREENING MAMMOGRAM BILATERAL W ANTON Schedule Routine, Read Routine (OP Routine) 09/05/2024 12:18 PM CDT Screening mammogram, encounter for COLONOSCOPY Routine 09/23/2020 HEPATITIS C ANTIBODY Routine 06/22/2020 7:19 AM CDT Annual physical exam from Last 3 Months or Most Recently Relevant to Health Maintenance Results * Screening Mammogram Bilateral W Anton (09/05/2024 12:18 PM CDT) Anatomical Region Laterality Modality Breast Bilateral Mammography Impressions 09/05/2024 3:27 PM CDT Bilateral No evidence of malignancy in either breast. OVERALL BI-RADS FINAL ASSESSMENT: 2 - Benign RECOMMENDATION: Recommend bilateral annual screening mammography. Narrative 09/05/2024 3:27 PM CDT EXAMINATION: Screening Mammogram Bilateral W Anton: 09/05/2024 COMPARISON: Relevant prior studies available at the time of interpretation were reviewed. TECHNIQUE: Mammography was performed with 2D and digital breast tomosynthesis (DBT) images. CAD was utilized. BREAST PARENCHYMAL COMPOSITION: There are scattered areas of fibroglandular density. FINDINGS: Bilateral There is no suspicious mass, calcification, or architectural distortion in either breast. There are findings consistent with the known breast cysts. us Self Screening Mammogram IMG MAMMO PROCEDURES Fi nal Result * Colonoscopy (09/23/2020) Anatomical Region Laterality [...] a test for HCV RNA (test code 47732) is suggested. For additional information please refer to http://education.[employer]/faq/RDF10t3 (This link is being provided for informational/ educational purposes only.) Blood specimen (specimen) 06/22/2020 7:19 AM CDT 06/22/2020 7:20 AM CDT Narrative [facility] - 06/23/2020 1:57 PM CDT FASTING:YES FASTING: YES Delbert Orellana DO LAB MICROBIOLOGY - GENER AL ORDERABLES Final Result [facility] [id number] [id number] from Last 3 Months or Most Recently Relevant to Health Maintenance Insurance [facility] CHOICE PLUS [employer] CHOICE PLUS * Guarantor: PEDRITO MOORE Account Type Relation to Patient Date of Phone Billing Address Personal/Family 1975 [address] [id number] [facility] CHOICE PLUS Care Teams Regulator Operator Relationship Specialty Start Date End Date Tyra Agudelo DO PCP - General Family Medicine 08/23/23
--- OUTSIDE RECORDS SUMMARY | 2024-12-23 07:09 | XMS_ITS | Encounter Summary ---
Author Organization [facility] Address [address] [place] [address] Care Team Providers Care Elephant Tamer Name Role Phone Unavailable Primary Care Provider Unavailabl e Encounter Details Date Type Department Care Team (Late st Contact Info) Description 10/27/2021 Lab Requisition [facility] [address] [place] [address] Andrew Porras MD [address] [place] [address] Social History Tobacco Use Types [...] AM CDT) Case Report Dermatopathology Report Case: [id number] Authorizing Provider: Andrew Porras MD Collected: 10/27/2021 12:00 AM Ordering Location: [facility] Received: 10/27/2021 05:17 PM [...] History AK vs. BCCA vs. Other. Path# [id number] 1:38 PM CDT DERMATOPATHOLOGY LABORATORY Gross Description Specimen A: Received is one formalin filled container labeled with the patient's name and designated right nasal sidewall. The specimen consists of a shave biopsy measuring [id number]. Jar 0. 2 1:38 PM CDT DERMATOPATHOLOGY [...] characteristic determined by the Dermatopathology Laboratory at [facility], directed by Dr. Gi Valentine. These tests need not be, and therefore are not, approved by the [place] Food and Drug Administration. The tests are used for clinical purposes. Billing Codes Specimen Charges Stain Charges 53283 1 2 1:38 PM CDT DERMATOPATHOLOGY LABORATORY Embedded Images 2 1:38 PM CDT DERMATOPATHOLOGY LABORATORY Pathology/Cytolog y TISSUE SPECIMEN FROM SKIN / Unknown 10/27/2021 10/27/2021 5:17 PM CDT us Andrew Porras MD LAB - PATHOLOGY/CYTOLOGY ORDER HARSH Edited Result - Final DERMATOPATHOLOGY LABORATORY [facility] - Department of Dermatology [address], [address] [phone] documented in this encounter Visit Diagnoses Not on filedocumented in this encounter
[2024-12-23 07:22] LABS: Hematocrit 40.4 % (35.0-49.0); Hemoglobin 13.2 g/dL (12.0-15.0); Immature Granulocyte Percent A 0.3 % (0.0-0.0); Lymphocytes Absolute Auto 2.00 K/mm3 (1.10-4.50); Mean Corpuscular HGB Conc 32.7 g/dL (32-36); Mean Corpuscular Hemoglobin 31.0 pg (27.0-31.0); Mean Corpuscular Volume 94.8 fL (78.0-102.0); Nucleated Red Blood Cells Absolute Auto 0.00 K/mm3 (0.00-0.00); Nucleated Red Blood Cells Perc 0.0 % (0-0.0); Platelet Count Result 245 K/mm3 (150-420); Red Blood Count 4.26 M/mm3 (4.20-5.40); White Blood Count 6.1 K/mm3 (4.8-10.8)
[2024-12-23 07:57] LABS: Iron 80 ug/dL (37-170)
[2024-12-23 07:59] LABS: Alanine Aminotransferase 15 U/L (6-35); Albumin Level 4.6 g/dL (3.5-5.1); Alkaline Phosphatase 72 U/L (38-126); Anion Gap 10 mmol/L (4-12); Aspartate Amino Transferase 30 U/L (14-36); Bilirubin,Total 0.7 mg/dL (0.2-1.3); Blood Urea Nitrogen 18 mg/dL (7-17); Calcium 10.1 mg/dL (8.4-10.2); Carbon Dioxide 29 mmol/L (22-30); Chloride 103 mmol/L (98-107); Cholesterol 198 mg/dL (0-200); Estimated Glomerular Filt Rate > 60; Glucose 88 mg/dL (65-110); HDL Direct 71 mg/dL; Osmolality Calculated 294 mOsm/kg (285-295); Potassium 5.0 mmol/L (3.4-5.0); Sodium 142 mmol/L (137-145); Total Protein 8.8 g/dL (6.3-8.2); Triglycerides 68 mg/dL (<150)
[2024-12-23 08:07] LABS: Percent Iron Saturation 25 % (20-50)
[2024-12-23 08:30] LABS: Thyroid Stimulating Hormone 0.761 uIU/mL (0.465-4.680)
[2024-12-23 08:34] LABS: Ferritin 34.90 ng/mL (11.1-264)
== END 2024-12-23 07:03 | disposition home or self-care (01) ==
LOC: CHSLAB 07:04
PROVIDERS: PCP Family Medicine; Visit Provider Family Medicine
DX: D64.9 Anemia, unspecified (principal); Z79.899 Other long term (current) drug therapy; Z13.29 Encounter for screening for other suspected endocrine disorder; Z13.220 Encounter for screening for lipoid disorders; E66.3 Overweight
CPT/HCPCS: 36415; 80053; 80061; 82728; 83540; 83550; 84443; 85025